=== PATIENT | male | born 1990 | race Caucasian/White ===

== ENCOUNTER 2017-06-15 07:56 | Day surgery (SDC) | payer OTHER ==
[~2017-06-15] VITALS: Ht 177.8 cm; Wt 84.4 kg
[~2017-06-15 07:56] MED LIST: NO MEDICATIONS
[2017-06-15] MEDS ORDERED: LR 1,000 ML IV ONE (08:15)
[2017-06-15] MEDS ORDERED: BUPIVACAINE/EPIN 0.25% 30 ML VIAL As Ordered ONE (08:48)
[2017-06-15] MEDS ORDERED: ONDANSETRON 4MG/2ML VIAL (J2405) As Ordered ONE (09:59)
[2017-06-15] MEDS ORDERED: ROCURONIUM BROMIDE 50 MG/5 ML VIAL/SYRINGE As Ordered ONE ×2 (09:59→10:00)
[2017-06-15] MEDS ORDERED: MIDAZOLAM INJ 2 MG/2 ML VIAL (J2250) As Ordered ONE (09:59)
[2017-06-15] MEDS ORDERED: PROPOFOL 200 MG/20 ML VIAL As Ordered ONE ×3 (09:59→10:24)
[2017-06-15] MEDS ORDERED: KETOROLAC 60 MG/2 ML VIAL (J1885) As Ordered ONE (09:59)
[2017-06-15] MEDS ORDERED: dexameTHASONE 4 MG/ML 1ML VIAL (J1100) As Ordered ONE (09:59)
[2017-06-15] MEDS ORDERED: fentaNYL 250 MCG/5 ML INJECTION (J3010) As Ordered ONE (09:59)
[2017-06-15] MEDS ORDERED: LIDOCAINE 2% INJ 100 MG/5 ML SDV (FOR ANES.) As Ordered ONE (09:59)
[2017-06-15] MEDS ORDERED: GLYCOPYRROLATE INJ 0.2 MG/ML 2 ML VIAL As Ordered ONE (10:05)
[2017-06-15] MEDS ORDERED: NEOSTIGMINE 10 MG/10 ML VIAL (J2710) As Ordered ONE ×2 (10:05→10:06)
[2017-06-15] MEDS ORDERED: PERCOCET 5MG/325MG TAB As Ordered ONE (11:30)
[2017-06-15] MEDS ORDERED: PERCOCET 5MG/325MG TAB PO PRN (12:00)
[2017-06-15] MEDS ORDERED: fentaNYL 100 MCG/2 ML INJECTION (J3010) IV PRN (12:00)
[2017-06-15] MEDS ORDERED: NORCO, ANEXSIA 5/325MG TABLET (HYDROcodone/ACETAMINOPHEN) PO PRN (12:00)
[2017-06-15] MEDS ORDERED: LR 1,000 ML IV SCH (12:00)
[2017-06-15 14:00] VITALS: BP 113/56
--- NOTE | 2017-06-16 13:04 | RO ---
DATE OF PROCEDURE: 06/15/2017 PREPROCEDURE DIAGNOSIS: Left inguinal hernia. POSTPROCEDURE DIAGNOSIS: Left inguinal hernia. PROCEDURE: Robotic-assisted left inguinal hernia repair. SURGEON: Ajith Squires DO [employer] NUTRITION TERRITORY MANAGER: Selene Hollingsworth NP ANESTHESIA: General. ESTIMATED BLOOD LOSS: 5. COMPLICATIONS: None. INDICATION FOR PROCEDURE: The patient is a 26-year-old male who presents with pain and swelling in the left groin after doing some heavy lifting. He was found to have a left inguinal hernia on examination. Recommendation was to proceed with robotic, possible open repair. The risks and benefits of the procedure, not limited to, but including bleeding, infection, hernia recurrence, hernia formation, damage to surrounding structures, need for further surgery were discussed in detail with the patient. Informed consent was obtained and procedure was planned. DESCRIPTION OF PROCEDURE: The patient was brought back to operating room #7. After sufficient sedation, the abdomen was sterilely prepped and draped and a Palmer catheter was placed. A time-out was done to confirm proper patient and proper procedure. Following that an 8 mm supraumbilical incision was made and incision was carried down to the level of the fascia. Veress entered, it was insufflated to 50 mmHg. The Veress needle was removed. 5 mm Optiview port was used to gain access to the abdomen. 8 mm ports were placed in the mid abdomen bilaterally. A 5 mm Optiview port was then replaced with an 8 mm robotic port. The patient was placed in Trendelenburg position. The robot was docked to the ports. Next, from the inside the peritoneum was incised over the left inguinal canal. The preperitoneal space was dissected free using a combination of blunt and sharp dissection, medially, laterally and inferiorly. Cord structures were carefully dissected free from the hernia sac. Once this was all completed, Bard 3DMax medium light mesh was placed in the preperitoneal space on the left side. This was sutured to the pubic symphysis using a #2-0 Vicryl suture. The mesh was laid flat inside of the pocket. Peritoneum was placed over top of it and sutured back together using a running #2-0 V-Loc stitch. Abdomen was then desufflated. Skin incisions were closed with #4-0 Vicryl subcuticular sutures. The abdomen was cleaned and dried. Steri-Strips, 4 x 4 and tape were applied, thus ending the procedure.
== END 2017-06-15 15:00 | disposition home or self-care (01) ==
LOC: M SDC 07:56
PROVIDERS: ATTEND Surgery
DX: K40.90 Unilateral inguinal hernia, without obstruction or gangrene, not specified as recurrent (principal)
CPT/HCPCS: 49650; C1781; J0690; J1100; J1885; J2250; J2405; J2710; J3010